=== PATIENT | female | born 1960 | race Caucasian/White ===

== ENCOUNTER → 2021-01-04 | Outpatient (CLI) | payer OTHER ==
[~2021-01-04] MED LIST: HYDR-2155 PO; PRED-220 PO
--- NOTE | 2021-01-04 16:38 | RAD ---
EXAM: Lumbar spine, 5 views. HISTORY: Pain. COMPARISON: None. FINDINGS: 5 views of the lumbar spine are obtained. There is minimal lumbar dextrocurvature centered at L4. There is mild retrolisthesis of L1 on L2 and L2 on L3. There is a prominent grade 1 anterolist hesis of L4 on L5. There is multilevel endplate remodeling. There is facet arthropathy predominantly at the lower lumbar levels. There are cholecystectomy clips. There is a clip within the left hemipelv is. IMPRESSION: 1. Multilevel degenerative change, primarily the lower lumbar levels. 2. Mild scoliosis and multilevel listhesis, predominantly at L4-L5. 3. No acute osseous finding. Electronically signed by: Jovita Robertson MD (01/04/2021 4:35 PM) [facility]
== END ==
LOC: RAD 15:41
PROVIDERS: ATTEND Physician Assistant Medical
DX: M47.816 Spondylosis without myelopathy or radiculopathy, lumbar region (principal); M41.86 Other forms of scoliosis, lumbar region; M54.42 Lumbago with sciatica, left side
CPT/HCPCS: 72110

== ENCOUNTER → 2021-01-10 | Outpatient (CLI) | payer OTHER ==
--- NOTE | 2021-01-10 11:33 | RAD ---
CT ABDOMEN+PELVIS WO dated 01/10/2021 10:40 AM Indication:Reason: LUQ ABDOMINAL PAIN / Spl. Instructions: / History: Comparison: No comparison is available. Technique: Helical noncontrast images were performed. One or more of the following individualized dose reduction techniques were utilized for this examinat ion: 1. Automated exposure control 2. Adjustment of the mA and/or kV according to patient size 3. Use of iterative reconstruction technique Findings: There is some emphysema. The lung bases otherwise are clear. The liver and spleen are homogeneous in density and normal in configuration. There are probably a couple tiny cysts in the liver. Evaluation of the solid organs is limited without IV contrast. The kidneys show no apparent mass, calcification or obstruction. The adrenal glands are not enlarged. The pancreas appears normal. No retroperitoneal or mesenteric adenopathy is seen. There is no apparent abdominal mass or inflammatory process. Images through the pelvis show no apparent abnormality of the distal ureters or bladder. The bladder was not well distended. No pelvic or inguinal adenopathy is seen. There is no apparent pelvic mass or inflammatory process. IMPRESSION: No acute abnormality. Electronically signed by: Samuel Espinosa Jr., MD (01/10/2021 11:30 AM) [facility]
== END ==
LOC: CT 10:32
PROVIDERS: ATTEND Physician Assistant Medical
DX: R10.12 Left upper quadrant pain (principal); J43.9 Emphysema, unspecified
CPT/HCPCS: 74176

== ENCOUNTER 2021-01-13 19:19 | Emergency (ER) | payer OTHER ==
[~2021-01-13] VITALS: Ht 162.6 cm; Wt 64.4 kg
--- NOTE | 2021-01-13 19:23 | PHYS DOC ---
General Adult HPI: HPI: Patient is a [age] year old [sex] who presents with [] (ERICKSON JOSE MD) HPI: Patient is a 60-year-old female who presents to the emergency department for left lower back pain that radiates down her leg. She rates her pain 9 out of 10. It is worse with movement. She states that her pain started on December 27 when she was pulling a patient at work and felt a pop. She was evaluated on January 04 at her primary care provider's office and had a CT scan of her spine and an x-ray and was diagnosed with sciatica. Patient states that she has a history of chronic back pain and spinal surgeries. Patient was discharged home with Flexeril and advised to take anti-inflammatory medications. She states that she has been taking these medications without any improvement in her symptoms. Patient denies any saddle anesthesias, loss of bowel or bladder. (LUPE HILL APRN) Review of Systems: Review of Systems: Constitutional: Denies fever or chills Eyes: Denies change in visual acuity HENT: Denies nasal congestion or sore throat Respiratory: Denies cough or shortness of breath Cardiovascular: Denies chest pain or edema GI: Denies abdominal pain, nausea, vomiting, bloody stools or diarrhea : Denies dysuria Musculoskeletal: Denies back pain or joint pain Integument: Denies rash Neurologic: Denies headache, focal weakness or sensory changes Endocrine: Denies polyuria or polydipsia Lymphatic: Denies swollen glands Psychiatric: Denies depression or anxiety (ERICKSON JOSE MD) Review of Systems: 14 body systems of the review of systems have been reviewed. See HPI for pertinent positive and negative responses, otherwise all other systems are negative, nonpertinent or noncontributory (LUPE HILL APRN) Physical Exam: PE: Constitutional: Well developed, well nourished, no acute distress, non-toxic appearance. [] HENT: Normocephalic, atraumatic, bilateral external ears normal, oropharynx moist, no oral exudates, nose normal. [] Eyes: PERRLA, EOMI, conjunctiva normal, no discharge. [] Neck: Normal range of motion, no tenderness, supple, no stridor. [] Cardiovascular:Heart rate regular rhythm, no murmur [] Lungs & Thorax: Bilateral breath sounds clear to auscultation [] Abdomen: Bowel sounds normal, soft, no tenderness, no masses, no pulsatile masses. [] Skin: Warm, dry, no erythema, no rash. [] Back: No tenderness, no CVA tenderness. [] Extremities: No tenderness, no cyanosis, no clubbing, ROM intact, no edema. [] Neurologic: Alert and oriented X 3, normal motor function, normal sensory function, no focal deficits noted. [] Psychologic: Affect normal, judgement normal, mood normal. [] (ERICKSON JOSE MD) PE: Constitutional: Well developed, well nourished, no acute distress, non-toxic appearance. [] HENT: Normocephalic, atraumatic, bilateral external ears normal, oropharynx moist, no oral exudates, nose normal. [] Eyes: PERRL, EOMI, conjunctiva normal, no discharge. [] Neck: Normal range of motion, no tenderness, supple, no stridor. [] Cardiovascular: Normal peripheral perfusion Lungs & Thorax: Normal work of breathing, no tachypnea Abdomen: Soft and flat Skin: Warm, dry, no erythema, no rash. [] Back: Left lumbar paraspinal tenderness with palpation, normal range of motion, no CVA tenderness, negative straight leg raise. [] Extremities: No tenderness, no cyanosis, no clubbing, ROM intact, no edema. [] Neurologic: Alert and oriented X 3, normal motor function, normal sensory function, no focal deficits noted. [] Psychologic: Affect normal, judgement normal, mood normal. [] (LUPE HILL APRN) EKG: EKG: [] (ERICKSON JOSE MD) Radiology/Procedures: Radiology/Procedures: [] (ERICKSON JOSE MD) Heart Score: Risk Factors: Risk Factors: DM, Current or recent (<one month) smoker, HTN, HLP, family history of CAD, obesity. Risk Scores: Score 0 - 3: 2.5% MACE over next 6 weeks - Discharge Home Score 4 - 6: 20.3% MACE over next 6 weeks - Admit for Clinical Observation Score 7 - 10: 72.7% MACE over next 6 weeks - Early Invasive Strategies (ERICKSON JOSE MD) C/O Chest Pain: N/A (LUPE HILL APRN) Course & Med Decision Making: Course & Med Decision Making Pertinent Labs and Imaging studies reviewed. (See chart for details) [] (ERICKSON JOSE MD) Course & Med Decision Making Patient presents to the emergency department for left lower back pain that radiates down her legs. Patient was previously seen by her primary care provider Dr. Olivares and had CT scans and x-ray of her spine. She was diagnosed with sciatica and given Flexeril and advised to take anti-inflammatory medications. She states that these are not helping. Patient discharged home with a steroid Dosepak and pain medication. She is advised to follow-up with her primary care provider on Saturday. I discussed with patient all findings as well as the need to follow-up with PCP for further evaluation and treatment or return to the ER if any new or worsening symptoms. Strict return precautions were also discussed at length. Patient voiced understanding and agreement with the plan. Patient is hemodynamically stable at the time of disposition. (LUPE HILL APRN) Dragon Disclaimer: Dragon Disclaimer: This electronic medical record was generated, in whole or in part, using a voice recognition dictation system. (ERICKSON JOSE MD) Dragon Disclaimer: This electronic medical record was generated, in whole or in part, using a voice recognition dictation system. (LUPE HILL APRN) Departure Departure: Impression: Primary Impression: Back pain Qualified Codes: M54.42 - Lumbago with sciatica, left side Disposition: HOME / SELF CARE / HOMELESS Condition: GOOD Referrals: LAILA JAMISON (PCP) Patient Instructions: Sciatica Additional Instructions: You were seen in the emergency department for left lower back pain that radiates down your leg. I reviewed your imaging reports and based off of those and your symptoms it sounds like you are having sciatica. You can continue to take your Flexeril as previously prescribed. You are being discharged home with a steroid taper that may help with the acute inflammation in your back. Please take this as directed. You are also being discharged home with the pain medication for your severe pain. This medication is hydrocodone and Tylenol and a combination tablet. Do not take any additional Tylenol with this medication. Do not take this medication when you need to be alert, driving a vehicle or with alcohol as it may cause drowsiness. Follow-up with your primary care provider on Saturday regarding your ER visit. Return to the emergency department if you develop worsening of your back pain, inability to bear weight or ambulate, weakness, loss of bowel or bladder, numbness or tingling in your groin. EMERGENCY DEPARTMENT GENERAL DISCHARGE INSTRUCTIONS Thank you for coming to [facility] (ED) today and trusting us with you care. We trust that you had a positivie experience in our Emergency Department. If you wish to speak to the department management, you may call the director at [phone]. YOUR FOLLOW UP INSTRUCTIONS ARE FOLLOWS: 1. Do you have a private Doctor? If you do not have a private doctor, please ask for a resource list of physicians or clinics that may be able to assist you with follow up care. 2. The Emergency Physician has interpreted your x-rays. The X-Ray specialist will also review them. If there is a change in the findings, you will be notified in 48 hours when at all possible. 3. A lab test or culture has been done, your results will be reviewed and you will be notified if you need a change in treatment. ADDITIONAL INSTRUCTIONS AND INFORMATION: 1. Your care today has been supervised by a physician who is specially trained in emergency care. Many problems require more than one evaluation for a complete diagnosis and treatment. We recommend that you schedule your follow up appointment as recommended to ensure complete treatment of you illness or injury. If you are unable to obtain follow up care and continue to have a problem, or if your condition worsens, we recommend that you return to the ED. 2. We are not able to safely determine your condition over the phone nor are we able to give sound medical advice over the phone. For these safety reasons, if you call for medical advice we will ask you to come to the ED for further evaluation. 3. If you have any questions regarding these discharge instructions please call the ED at [phone]. SAFETY INFORMATION: In the interest of safety, wellness, and injury prevention; we encourage you to wear your sealbelt, if you smoke; quite smoking, and we encourage family to use a protective helmet for bicycling and other sporting events that present an increased risk for head injury. IF YOUR SYMPTOMS WORSEN OR NEW SYMPTOMS DEVELOP, OR YOU HAVE CONCERNS ABOUT YOUR CONDITION; OR IF YOUR CONDITION WORSENS WHILE YOU ARE WAITING FOR YOUR FOLLOW UP APPOINTMENT; EITHER CONTACT YOUR PRIMARY CARE DOCTOR, THE PHYSICIAN WHOSE NAME AND NUMBER YOU WERE GIVEN, OR RETURN TO THE ED IMMEDIATELY. Scripts Hydrocodone Bit/Acetaminophen (HYDROCODONE-APAP 5-325 ) 1 Each Tablet 1 TAB PO PRN Q6HRS PRN for PAIN for 2 Days, #8 TAB 0 Refills Prov: LUPE HILL APRN 01/13/21 Prednisone (PREDNISONE) 10 Mg Tablet 10 MG PO UD for PREDNISONE TAPER, #21 TAB 0 Refills take 6 tablets day 1, 5 tablets day 2, 4 tablets day 3, 3 tablets day 4, 2 tablets day 5, 1 tablet day 6. Prov: LUPE HILL APRN 01/13/21 Attending Signature Attending Signature I have participated in the care of this patient and I have reviewed and agree with all pertinent clinical information above including history, exam, and recommendations. (ERICKSON JOSE MD) Attending Signature Attending Signature I have participated in the care of this patient and I have reviewed and agree w ith all pertinent clinical information above including history, exam, and recommendations. (ERICKSON JOSE MD) ERICKSON JOSE MD Jan 13, 2021 19:23 LUPE HILL APRN Jan 13, 2021 19:53
[2021-01-13] MEDS ORDERED: HYDR-2155 PO (19:52)
[2021-01-13] MEDS ORDERED: PRED-220 PO (19:52)
[2021-01-13 20:12] VITALS: BP 137/85
[2021-01-13] MEDS ORDERED: HYDROcodone/APAP 5/325MG 1 TAB TABLET PO ONE (20:15)
== END 2021-01-13 20:26 | disposition home or self-care (01) ==
LOC: ER 19:19
DX: M54.42 Lumbago with sciatica, left side (principal)
CPT/HCPCS: 99283-25